=== PATIENT | female | born 1950 | race Caucasian/White ===

== ENCOUNTER 2016-07-09 10:17 | Emergency (ER) | payer OTHER ==
[~2016-07-09] VITALS: Ht 152.4 cm; Wt 83.0 kg
--- NOTE | 2016-07-09 10:28 | NUR ---
Patient ambulated to bed 04.
[2016-07-09 10:31] VITALS: BP 151/69
[2016-07-09] MEDS ORDERED: ASPIR 8181 MG PO (10:33)
[2016-07-09] MEDS ORDERED: LASIX20 M1 PO (10:33)
[2016-07-09] MEDS ORDERED: LOSARTAN POTASS50 MG PO (10:33)
--- NOTE | 2016-07-09 10:33 | NUR ---
PT STATES COUGH, BILATERAL EAR ACHE, AND SORE THROAT X 8 DAYS . DENIES N/V/D; SKIN IS PINK/WARM/DRY; AAOX4 WITH EVEN AND STEADY GAIT; LUNGS CLEAR BL; HR EVEN AND REGULAR; PT DENIES ANY FEVER, CP, SOB, AT THIS TIME; PATIENT STATES PAIN OF 5/10 AT THIS TIME; VSS; PATIENT POSITIONED FOR COMFORT; HOB ELEVATED; BEDRAILS UP X2; BED DOWN. ER MD MADE AWARE OF PT STATUS.
--- NOTE | 2016-07-09 10:43 | NUR ---
Dr. Hernandez evaluating patient at bedside.
--- NOTE | 2016-07-09 10:56 | NUR ---
Patient discharged with v/s stable. Written and verbal after care instructions given and explained. Patient alert, oriented and verbalized understanding of instructions. Ambulatory with steady gait. All questions addressed prior to discharge. ID band removed. Patient advised to follow up with PMD. Rx of IBUPROFEN & AUGMENTIN given. Patient educated on indication of medication including possible reaction and side effects. Opportunity to ask questions provided and answered.
[2016-07-09 11:01] VITALS: BP 138/70
== END 2016-07-09 10:56 | disposition home or self-care (01) ==
LOC: MED 10:35
DX: J02.0 Streptococcal pharyngitis (principal); H66.93 Otitis media, unspecified, bilateral; I10 Essential (primary) hypertension; Z85.3 Personal history of malignant neoplasm of breast; Z79.82 Long term (current) use of aspirin

== ENCOUNTER 2016-12-28 19:51 | Emergency (ER) | payer OTHER ==
[~2016-12-28] VITALS: Ht 154.9 cm; Wt 80.7 kg
[~2016-12-28 19:51] MED LIST: ASPI81EC97 PO; FURO-572 PO; LOSA50TA39 PO
[2016-12-28 20:10] VITALS: BP 145/90
[2016-12-28] MEDS ORDERED: KETOROLAC 60 MG/2 ML VIAL IM ONE (21:40)
[2016-12-28 22:00] VITALS: BP 153/76
== END 2016-12-28 22:00 | disposition home or self-care (01) ==
LOC: MED 19:51
DX: M54.41 Lumbago with sciatica, right side (principal); I10 Essential (primary) hypertension; E11.9 Type 2 diabetes mellitus without complications; R03.0 Elevated blood-pressure reading, without diagnosis of hypertension; Z79.899 Other long term (current) drug therapy
CPT/HCPCS: 72131; 96372; 99284; J1885

== ENCOUNTER 2018-01-10 18:50 | Emergency (ER) | payer OTHER ==
[~2018-01-10] VITALS: Ht 147.3 cm; Wt 77.1 kg
[2018-01-10 18:56] VITALS: BP 164/74
--- NOTE | 2018-01-10 19:02 | NUR ---
PT AMBULATES TO BED 4
--- NOTE | 2018-01-10 19:15 | NUR ---
PT PRESENTED ER WITH C/O PAIN TO THE RIGHT HIP X 2 DAYS. PT DENIES TRAUMA OR FALL/INJURY TO SITE. PT IS A/O X 4. FAMILY AT BEDSIDE. PT IS 10/10 FOR PAIN. SKIN IS PINK/WARM/DRY; HOB ELEVATED; BEDRAILS UP X2; BED DOWN. ER MD MADE AWARE OF PT STATUS. [facility] HX- HTN, BREAT CANCER
[2018-01-10] MEDS ORDERED: IBUPROFEN 600 MG TAB PO ONE (19:30)
--- NOTE | 2018-01-10 19:35 | NUR ---
PT TAKEN TO RAD
--- NOTE | 2018-01-10 19:45 | NUR ---
PT IS BACK FROM RAD
[2018-01-10 20:30] VITALS: BP 153/82
== END 2018-01-10 20:30 | disposition home or self-care (01) ==
LOC: MED 18:50
DX: M25.551 Pain in right hip (principal); I10 Essential (primary) hypertension; Z79.82 Long term (current) use of aspirin; Z79.899 Other long term (current) drug therapy; Z85.3 Personal history of malignant neoplasm of breast
CPT/HCPCS: 73502; 99284

== ENCOUNTER 2020-05-16 11:28 | Emergency (ER) | payer OTHER ==
[~2020-05-16] VITALS: Ht 154.9 cm; Wt 77.6 kg
[~2020-05-16 11:28] MED LIST changes: -LOSA50TA39 PO; +LOSA50TA66 PO
[2020-05-16 11:37] VITALS: BP 127/69
--- NOTE | 2020-05-16 11:37 | NUR ---
PT TAKEN TO BED 3.
[2020-05-16] MEDS ORDERED: DICYCLOMINE HCL LIQUID 20 MG, ALUMINUM HYD/MAG/SIMETHICONE 30 ML, LIDOCAINE VISCOUS 2% ... PO ONE ×3 (12:25)
[2020-05-16] MEDS ORDERED: DICYCLOMINE HCL LIQUID 10 MG/5 ML UDC ONE (12:35)
[2020-05-16] MEDS ORDERED: ALUMINUM HYD/MAG/SIMETHICONE 30 ML UDC ONE (12:35)
[2020-05-16] MEDS ORDERED: LIDOCAINE VISCOUS 2% 20 ML UDC ONE (12:35)
[2020-05-16 12:54] VITALS: BP 127/69
--- NOTE | 2020-05-16 12:54 | NUR ---
Patient discharged with v/s stable. Written and verbal after care instructions given and explained. Patient alert, oriented and verbalized understanding of instructions. Ambulatory with steady gait. All questions addressed prior to discharge. ID band removed. Patient advised to follow up with PMD. Rx of Prilosec 40mg PO daily given. Patient educated on indication of medication including possible reaction and side effects. Opportunity to ask questions provided and answered.
== END 2020-05-16 12:54 | disposition home or self-care (01) ==
LOC: MED 11:28
DX: R10.13 Epigastric pain (principal); E11.9 Type 2 diabetes mellitus without complications; I10 Essential (primary) hypertension; Z79.82 Long term (current) use of aspirin; Z79.899 Other long term (current) drug therapy; Z85.3 Personal history of malignant neoplasm of breast
CPT/HCPCS: 81002; 99283

== ENCOUNTER 2020-10-29 15:36 | Emergency (ER) | payer OTHER ==
[~2020-10-29] VITALS: Ht 152.4 cm; Wt 77.6 kg
[2020-10-29 15:44] VITALS: BP 165/73
--- NOTE | 2020-10-29 15:55 | NUR ---
70 YO F C/O DYSURIA X 1 DAY. 02/08, BURNING. DENIES HEMATURIA. DENIES FEVER, N/V/D. NO MEDICATIONS TAKEN. PMH: BREAST CA, HTN, DM NKA
[2020-10-29 16:52] LABS: APPEARANCE,URINE CLEAR (CLEAR); BILIRUBIN,URINE NEGATIVE (NEGATIVE); BLOOD, URINE TRACE-I (NEGATIVE); COLOR,URINE YELLOW (YELLOW); LEUKOCYTE ESTERASE ,URINE NEGATIVE (NEGATIVE); NITRITE, URINE NEGATIVE (NEGATIVE); PH,URINE 6.5 (5.0-9.0); UGLUCOSE 3+ (NEGATIVE)
[2020-10-29 17:23] LABS: CARBON DIOXIDE 26.5 mmol/L (21-32); CREATININE 0.6 mg/dL (0.6-1.3); POTASSIUM 3.5 mmol/L (3.5-5.1)
--- NOTE | 2020-10-29 17:23 | NUR ---
Patient resting in bed, VSS, bed locked and in the lowest position, and call light within reach.
[2020-10-29] MEDS ORDERED: PHENAZOPYRIDINE 100 MG TAB PO ONE (17:25)
[2020-10-29] MEDS ORDERED: cephALEXin 500 MG CAP PO ONE (17:25)
[2020-10-29] MEDS ORDERED: CEPH-588 PO ×2 (17:32→17:38)
[2020-10-29] MEDS ORDERED: PYR100 PO ×2 (17:32→17:38)
[2020-10-29 17:42] VITALS: BP 156/73
--- NOTE | 2020-10-29 17:43 | NUR ---
Patient discharged with v/s stable. Written and verbal after care instructions given and explained. Patient alert, oriented and verbalized understanding of instructions. Ambulatory with steady gait. All questions addressed prior to discharge. ID band removed. Patient advised to follow up with PMD. Rx of cephalexin, pyridium given. Patient educated on indication of medication including possible reaction and side effects. Opportunity to ask questions provided and answered.
== END 2020-10-29 17:43 | disposition home or self-care (01) ==
LOC: MED 15:36
DX: R30.0 Dysuria (principal); E11.65 Type 2 diabetes mellitus with hyperglycemia; I10 Essential (primary) hypertension; Z85.3 Personal history of malignant neoplasm of breast; Z98.890 Other specified postprocedural states; Z79.82 Long term (current) use of aspirin; Z79.2 Long term (current) use of antibiotics; Z79.899 Other long term (current) drug therapy
CPT/HCPCS: 36415; 80048; 81003; 82948; 99283